=== PATIENT | male | born 1995 | race Caucasian/White ===

== ENCOUNTER 2022-05-27 20:13 | Emergency (ER) | payer MEDICAID ==
[~2022-05-27] VITALS: Ht 165.1 cm; Wt 75.0 kg
[2022-05-27] MEDS ORDERED: IBUPROFEN 600MG TABLET PO ONE (23:45)
[2022-05-27 23:56] LABS: CLARITY URINE CLEAR (CLEAR); COLOR URINE YELLOW (YELLOW); KETONES URINE TRACE (NEGATIVE); LEUKOCYTE ESTERASE URINE TRACE (NEGATIVE); NITRITE URINE NEGATIVE (NEGATIVE); OCCULT BLOOD URINE NEGATIVE (NEGATIVE); PH URINE 6.5 (4.5-8.0); PROTEIN URINE NEGATIVE (NEGATIVE); SPECIFIC GRAVITY URINE 1.021 (1.005-1.030)
[2022-05-28] MEDS ORDERED: TOPUD PO (01:44)
[2022-05-28 02:04] VITALS: BP 112/78
== END 2022-05-28 02:05 | disposition home or self-care (01) ==
LOC: ER 20:24
DX: N50.811 Right testicular pain (principal); N43.3 Hydrocele, unspecified
CPT/HCPCS: 76870; 81003; 93976; 99284

== ENCOUNTER 2022-09-25 21:51 | Emergency (ER) | payer MEDICAID ==
[~2022-09-25] VITALS: Ht 165.1 cm; Wt 75.0 kg
[~2022-09-25 21:51] MED LIST: TOPUD PO
[2022-09-26 02:26] VITALS: BP 135/85
== END 2022-09-26 05:39 | disposition left against medical advice (07) ==
LOC: ER 21:51
DX: Z53.21 Procedure and treatment not carried out due to patient leaving prior to being seen by health care provider (principal); I49.9 Cardiac arrhythmia, unspecified
CPT/HCPCS: 93005

== ENCOUNTER 2024-06-23 17:30 | Emergency (ER) | payer MEDICAID ==
[~2024-06-23] VITALS: Ht 165.1 cm; Wt 72.6 kg
[2024-06-23 17:53] VITALS: O2SAT 98
[2024-06-23 18:13] VITALS: BP 139/86; PULSE 60; RESP 16; TEMP 98.7; O2SAT 98
== END 2024-06-23 23:35 | disposition left against medical advice (07) ==
LOC: ER 17:30
DX: M79.89 Other specified soft tissue disorders (principal); Z53.21 Procedure and treatment not carried out due to patient leaving prior to being seen by health care provider